=== PATIENT | male | born 1975 | race African-American/Black ===

== ENCOUNTER 2022-06-27 09:22 | Inpatient (IN) ==
[2022-06-27] MEDS ORDERED: ceFAZolin 2,000 MG/50 ML DUPLEX IV ONE (10:09)
[2022-06-27] MEDS ORDERED: DIPH/TET/ACEL PERT BOOSTER VACCINE 0.5 ML VIAL IM ONE (10:09)
[2022-06-27] MEDS ORDERED: HYDROmorphone 1 MG/1 ML SYRINGE IV STA (10:10)
[2022-06-27] MEDS ORDERED: ONDANSETRON 4 MG/2 ML VIAL IV ONE (10:10)
[2022-06-27 10:33] LABS: Basophils % 0.5 % (0.0-0.8); Eosinophils # 0.1 10*3/uL (0.0-0.87); Hematocrit 45.5 VOL% (42.0-52.0); Hemoglobin 14.3 GM/DL (14.0-18.0); Immature Granulocytes % 0.4 %; Immature Granulocytes Absolute 0.03 #; Lymphocytes # 2.2 10*3/uL (1.4-4.0); Lymphocytes % 26.9 % (21.2-54.2); Mean Corpuscular HGB Conc 31.4 GM/DL (32-36); Mean Corpuscular Volume 92.1 FL (87-102); Mean Platelet Volume 9.7 FL (9.6-12.0); Monocytes # 0.5 10*3/uL (0.11-0.8); Monocytes % 5.7 % (1.7-12.7); Neutrophils % 65.5 % (38.7-73.9); Platelet Count 302 T/CUMM (130-400); Red Blood Count 4.94 MC/CUMM (3.8-5.5); Red Cell Distribution Width 13.9 % (9.3-17.3); White Blood Count 8.1 T/CUMM (4-12)
[2022-06-27 10:46] LABS: INR 0.9; PT Patient Result 10.4 SECS (10.1-12.1)
[2022-06-27 10:49] LABS: Calcium 9.4 MG/DL (8.5-10.1); Potassium 4.1 MMOL/L (3.5-5.1)
[2022-06-27] MEDS ORDERED: MAGNESIUM HYDROXIDE SUSP 30 ML UDCUP PO PRN ×2 (11:56→14:07)
[2022-06-27] MEDS ORDERED: fentaNYL 100 MCG/2 ML VIAL ONE (12:43)
[2022-06-27] MEDS ORDERED: MIDAZOLAM 2 MG/2 ML VIAL ONE (12:43)
[2022-06-27] MEDS ORDERED: cefTRIAXone 1,000 MG VIAL ONE (13:02)
[2022-06-27] MEDS ORDERED: LIDOCAINE 2% 5 ML VIAL ONE (13:30)
[2022-06-27] MEDS ORDERED: SEVOFLURANE 1 UNIT/15 MINUTE INH ONE (13:30)
[2022-06-27] MEDS ORDERED: propofoL 200 MG/20 ML VIAL IV ONE (13:30)
[2022-06-27] MEDS ORDERED: SUCCINYLCHOLINE 200 MG/10 ML VIAL ONE (13:30)
[2022-06-27] MEDS ORDERED: ROCURONIUM 50 MG/5 ML VIAL IV ONE (13:30)
[2022-06-27] MEDS ORDERED: PHENYLEPHRINE 1 MG/10 ML SYRINGE IV ONE (13:30)
[2022-06-27] MEDS ORDERED: ONDANSETRON 4 MG/2 ML VIAL ONE (13:32)
[2022-06-27] MEDS ORDERED: ONDANSETRON 4 MG/2 ML VIAL IV PRN (14:20)
[2022-06-27] MEDS: HYDROmorphone 1 MG/1 ML SYRINGE IV PRN ×2 (14:22→14:37)
[2022-06-27] MEDS ORDERED: GLUCAGON 1 MG VIAL IM PRN (15:13)
[2022-06-27] MEDS ORDERED: DEXTROSE 10% 250 ML BAG IV PRN (15:17)
[2022-06-27] MEDS: LACTATED RINGERS 1,000 ML IV SCH (15:41)
[2022-06-27 16:09] LABS: Albumin 3.5 G/DL (3.4-5.0); Bilirubin,Total 0.5 MG/DL (0.20-1.00); Calcium 9.3 MG/DL (8.5-10.1); Osmolality,Calculated 296.6 MOS/KG (273-304); Potassium 4.4 MMOL/L (3.5-5.1); Total Protein 7.5 G/DL (6.4-8.2)
[2022-06-27] MEDS: INSULIN LISPRO 100 UNIT/ML SUBCUT SCH ×2 (17:07→21:52)
[2022-06-27] MEDS: ONDANSETRON 4 MG/2 ML VIAL IM PRN (20:13)
[2022-06-27] MEDS: DAPAGLIFLOZIN 5 MG TABLET PO SCH (20:13)
[2022-06-27] MEDS: CLINDAMYCIN INJ 900 MG/50 ML PREMIX IV SCH (20:31)
[2022-06-28] MEDS: CLINDAMYCIN INJ 900 MG/50 ML PREMIX IV SCH (05:18)
[2022-06-28] MEDS: LACTATED RINGERS 1,000 ML IV SCH ×2 (06:00→16:25)
[2022-06-28 06:09] LABS: Basophils % 0.3 % (0.0-0.8); Eosinophils # 0.1 10*3/uL (0.0-0.87); Eosinophils % 1.1 % (0.00-10.9); Hematocrit 39.4 VOL% (42.0-52.0); Hemoglobin 12.2 GM/DL (14.0-18.0); Immature Granulocytes % 0.3 %; Immature Granulocytes Absolute 0.03 #; Lymphocytes % 29.1 % (21.2-54.2); Mean Corpuscular Volume 93.8 FL (87-102); Mean Platelet Volume 10.3 FL (9.6-12.0); Monocytes # 0.8 10*3/uL (0.11-0.8); Monocytes % 7.6 % (1.7-12.7); Neutrophils % 61.6 % (38.7-73.9); Platelet Count 247 T/CUMM (130-400); Red Cell Distribution Width 14.3 % (9.3-17.3); White Blood Count 10.4 T/CUMM (4-12)
[2022-06-28 06:20] LABS: Potassium 3.6 MMOL/L (3.5-5.1)
[2022-06-28] MEDS: INSULIN LISPRO 100 UNIT/ML SUBCUT SCH ×4 (07:25→20:40)
[2022-06-28] MEDS: PANTOPRAZOLE 40 MG TABLET PO SCH (08:34)
[2022-06-28] MEDS: cefTRIAXone 1,000 MG in SODIUM CHLORIDE 0.9% 100 ML IV SCH (08:34)
[2022-06-28] MEDS: SEMAGLUTIDE 7 MG PO SCH (10:27)
[2022-06-28] MEDS: ONDANSETRON 4 MG/2 ML VIAL IM PRN (11:45)
[2022-06-28] MEDS: DAPAGLIFLOZIN 5 MG TABLET PO SCH (20:40)
[2022-06-29 06:35] LABS: Basophils % 0.4 % (0.0-0.8); Eosinophils # 0.2 10*3/uL (0.0-0.87); Eosinophils % 2.1 % (0.00-10.9); Hematocrit 38.2 VOL% (42.0-52.0); Hemoglobin 11.8 GM/DL (14.0-18.0); Immature Granulocytes % 0.4 %; Immature Granulocytes Absolute 0.03 #; Lymphocytes # 3.5 10*3/uL (1.4-4.0); Lymphocytes % 41.8 % (21.2-54.2); Mean Corpuscular HGB Conc 30.9 GM/DL (32-36); Mean Corpuscular Volume 93.9 FL (87-102); Mean Platelet Volume 10.6 FL (9.6-12.0); Monocytes # 0.7 10*3/uL (0.11-0.8); Monocytes % 8.8 % (1.7-12.7); Neutrophils % 46.5 % (38.7-73.9); Platelet Count 247 T/CUMM (130-400); Red Blood Count 4.07 MC/CUMM (3.8-5.5); Red Cell Distribution Width 14.3 % (9.3-17.3); White Blood Count 8.4 T/CUMM (4-12)
[2022-06-29] MEDS: LACTATED RINGERS 1,000 ML IV SCH ×4 (07:28→22:45)
[2022-06-29] MEDS: INSULIN LISPRO 100 UNIT/ML SUBCUT SCH ×4 (08:44→21:03)
[2022-06-29] MEDS: cefTRIAXone 1,000 MG in SODIUM CHLORIDE 0.9% 100 ML IV SCH (08:46)
[2022-06-29] MEDS: PANTOPRAZOLE 40 MG TABLET PO SCH (08:46)
[2022-06-29] MEDS: SEMAGLUTIDE 7 MG PO SCH (09:15)
[2022-06-29 10:57] LABS: Calcium 8.4 MG/DL (8.5-10.1); Osmolality,Calculated 290.8 MOS/KG (273-304)
[2022-06-29] MEDS: DAPAGLIFLOZIN 5 MG TABLET PO SCH (21:02)
[2022-06-30 07:22] VITALS: BP 167/99
[2022-06-30] MEDS: INSULIN LISPRO 100 UNIT/ML SUBCUT SCH (09:14)
[2022-06-30] MEDS: cefTRIAXone 1,000 MG in SODIUM CHLORIDE 0.9% 100 ML IV SCH (09:14)
[2022-06-30] MEDS: PANTOPRAZOLE 40 MG TABLET PO SCH (09:19)
[2022-06-30] MEDS: SEMAGLUTIDE 7 MG PO SCH (10:44)
== END 2022-06-30 12:10 | disposition home or self-care (01) | DRG 504 ==
LOC: N.ED 09:22 → N.EDINP 11:56 → SUATTDRO 11:56 → N.3E 12:35
PROVIDERS: ADMIT Orthopaedic Surgery; ATTEND Orthopaedic Surgery